=== PATIENT | female | born 1985 | race Caucasian/White ===

== ENCOUNTER 2017-03-05 16:28 | Emergency (ER) | payer OTHER ==
[2017-03-05 23:51] VITALS: BP 114/70
== END 2017-03-05 23:51 | disposition home or self-care (01) ==
LOC: ED 16:28
DX: G43.909 Migraine, unspecified, not intractable, without status migrainosus (principal); J45.909 Unspecified asthma, uncomplicated
CPT/HCPCS: J1170; J1885; Q0162

== ENCOUNTER 2017-09-26 17:32 | Emergency (ER) | payer OTHER ==
[2017-09-26 20:10] VITALS: BP 115/74
== END 2017-09-26 20:10 | disposition home or self-care (01) ==
LOC: ED 17:32
DX: K64.8 Other hemorrhoids (principal); J45.909 Unspecified asthma, uncomplicated; G43.909 Migraine, unspecified, not intractable, without status migrainosus